=== PATIENT | male | born 1950 | race Caucasian/White ===

== ENCOUNTER 2017-11-16 11:29 | Outpatient (CLI) | payer MEDICARE, BC ==
--- NOTE | 2017-11-16 13:06 | RAD ---
TWO VIEWS CHEST: HISTORY: Dyspnea. FINDINGS: PA and lateral views of the chest were obtained on 11/16/17. Comparison is made to previous exam from 08/13/15. Two views chest demonstrate areas of patchy density in the left retrocardiac area compatible with are as of left lower lobe pneumonia. Followup films to resolution recommended. Some diffuse interstitia l changes compatible with fibrotic changes seen throughout the lung parenchyma which is stable and un changed. There does appear to be a left-sided carotid arterial stent. IMPRESSION: Area of patchy density in the left lung base concerning for an area of pneumonia. Followup films to resolution recommended. CODE T POS: [facility]
== END 2017-11-16 11:30 | disposition home or self-care (01) ==
LOC: RAD 11:29
PROVIDERS: ATTEND Internal Medicine
DX: R06.00 Dyspnea, unspecified (principal)
CPT/HCPCS: 71046

== ENCOUNTER 2017-12-28 10:58 | Outpatient (CLI) | payer MEDICARE, BC ==
--- NOTE | 2017-12-28 12:49 | RAD ---
PA AND LATERAL CHEST: History: Dyspnea. FINDINGS: Comparison is made with exam of 11-16-17. The heart size is normal. The aorta is tortuous. The lungs are well expanded with stable chronic maya ges. No lobar consolidation, pneumothoraces or pleural effusions are seen. A left sided carotid arter ial stent is again seen. No acute osseous abnormalities identified. IMPRESSION: No evidence of acute cardiopulmonary process. POS: [facility]
== END 2017-12-28 10:59 | disposition home or self-care (01) ==
LOC: RAD 10:58
PROVIDERS: ATTEND Internal Medicine
DX: R06.00 Dyspnea, unspecified (principal)
CPT/HCPCS: 71046

== ENCOUNTER 2018-08-08 16:00 | Outpatient (CLI) | payer MEDICARE, BC | END 2018-08-08 16:01 | disposition home or self-care (01) | LOC: SLEEPLAB 16:00 | PROVIDERS: ATTEND Internal Medicine | DX: G47.33 Obstructive sleep apnea (adult) (pediatric) (principal); R09.89 Other specified symptoms and signs involving the circulatory and respiratory systems; R06.83 Snoring; K21.9 Gastro-esophageal reflux disease without esophagitis; R35.1 Nocturia; R09.02 Hypoxemia | CPT/HCPCS: 95806 ==

== ENCOUNTER 2018-08-10 14:32 | Outpatient (CLI) | payer MEDICARE, BC ==
--- NOTE | 2018-08-10 16:44 | RAD ---
TWO VIEWS CHEST: Comparison: 11-16-09 History: Dyspnea. FINDINGS: Two views of the chest shows a normal sized cardiomediastinal silhouette. Increased interstitial starla ings are present. There is no evidence of consolidation, mass, or pleural effusion. A stent is seen i n the left neck and overlying the heart. Degenerative changes are seen in the spine. IMPRESSION: No evidence of acute cardiopulmonary disease. POS: [facility]
== END 2018-08-10 14:33 | disposition home or self-care (01) ==
LOC: RAD 14:32
PROVIDERS: ATTEND Internal Medicine
DX: R06.00 Dyspnea, unspecified (principal)
CPT/HCPCS: 71046

== ENCOUNTER 2019-05-16 12:24 | Outpatient (CLI) | payer MEDICARE, BC | END 2019-05-16 12:25 | disposition home or self-care (01) | LOC: CP 12:24 | PROVIDERS: ATTEND Internal Medicine | DX: J47.1 Bronchiectasis with (acute) exacerbation (principal); R09.02 Hypoxemia | CPT/HCPCS: 94060; 94729 ==

== ENCOUNTER 2019-08-15 13:06 | Outpatient (CLI) | payer MEDICARE, BC ==
--- NOTE | 2019-08-15 13:31 | RAD ---
EXAM: Chest 2 views: HISTORY: Dyspnea COMPARISON: 12/28/2017 FINDINGS: There is a normal-sized cardiomediastinal silhouette. Increased interstitial markings are present. There is no evidence of consolidation, mass, or pleural effusion. The bones are unremarkable. IMPRESSION: Chronic interstitial lung disease without evidence of acute cardiopulmonary disease
== END 2019-08-15 13:07 | disposition home or self-care (01) ==
LOC: RAD 13:06
PROVIDERS: ATTEND Internal Medicine
DX: R06.00 Dyspnea, unspecified (principal); J84.9 Interstitial pulmonary disease, unspecified
CPT/HCPCS: 71046